=== PATIENT | female | born 2000 | race Caucasian/White ===

== ENCOUNTER 2020-03-05 18:17 | Inpatient (IN) | payer OTHER ==
[2020-03-05] MEDS ORDERED: DINOPROSTONE 10 MG VAGINAL INSERT.SR PV PRN (19:17)
[2020-03-05] MEDS ORDERED: OXYTOCIN/0.9 % SODIUM CHLORIDE 30 UNIT/500 ML RTUINJ IV PRN (19:17)
[2020-03-05] MEDS ORDERED: RINGERS SOLUTION,LACTATED 1,000 ML IV PRN (19:19)
[2020-03-05] MEDS ORDERED: RINGERS SOLUTION,LACTATED 300 ML IV ONE (19:19)
[2020-03-05] MEDS ORDERED: DINOPROSTONE 10 MG VAGINAL INSERT.SR ONE (19:33)
[2020-03-05 20:27] LABS: HEMATOCRIT 34.9 % (36.0-47.0); HEMOGLOBIN 11.8 g/dL (12.0-15.5); MEAN CORPUSCULAR HEMOGLOBIN 30.2 pg (27.0-33.4); MEAN CORPUSCULAR HGB CONC 33.9 g/dL (32.0-36.0); MEAN CORPUSCULAR VOLUME 89 fl (80-97); PLATELET COUNT 180 10^3/uL (150-450); RED BLOOD COUNT 3.91 10^6/uL (3.72-5.28); WHITE BLOOD COUNT 7.5 10^3/uL (4.0-10.5)
[2020-03-05 21:07] LABS: APPEARANCE,URINE TURBID; BILIRUBIN,URINE NEGATIVE (NEGATIVE); COLOR,URINE YELLOW; GLUCOSE, URINE NEGATIVE (NEGATIVE); KETONES,URINE NEGATIVE (NEGATIVE); LEUKOCYTE ESTERASE,URINE TRACE (NEGATIVE); NITRITE,URINE NEGATIVE (NEGATIVE); PROTEIN,URINE 30 mg/dL (NEGATIVE); URINE SPECIFIC GRAVITY 1.026
[2020-03-05 21:16] LABS: URINE AMPHETAMINES SCREEN NEGATIVE; URINE BARBITURATES SCREEN NEGATIVE; URINE BENZODIAZEPINES SCREEN NEGATIVE; URINE COCAINE SCREEN NEGATIVE; URINE MARIJUANA (THC) SCREEN NEGATIVE; URINE METHADONE SCREEN NEGATIVE; URINE PHENCYCLIDINE SCREEN NEGATIVE
[2020-03-06] MEDS ORDERED: LIDOCAINE 1% INJ-PF (10 MG/ML) 30 ML SDV ONE (08:45)
[2020-03-06] MEDS ORDERED: OXYTOCIN/0.9 % SODIUM CHLORIDE 30 UNIT/500 ML RTUINJ ONE (08:45)
[2020-03-06] MEDS ORDERED: OXYTOCIN 10 UNIT/ML VIAL ONE (08:45)
[2020-03-06] MEDS ORDERED: MISOPROSTOL 0.2 MG TABLET ONE (08:45)
[2020-03-06] MEDS ORDERED: NALBUPHINE HCL INJ 10 MG/1 ML AMPULE ONE (09:12)
[2020-03-06] MEDS ORDERED: NALBUPHINE HCL INJ 10 MG/1 ML AMPULE INJ ONE (09:20)
[2020-03-06] MEDS ORDERED: ONDANSETRON HCL INJ/PF 4 MG/2 ML SDV ONE (10:12)
[2020-03-06 10:26] LABS: ABSOLUTE LYMPHOCYTES (AUTO) 1.6 10^3/uL (0.5-4.7); ABSOLUTE MONOCYTES (AUTO) 1.1 10^3/uL (0.1-1.4); ABSOLUTE NEUT (AUTO) 8.6 10^3/uL (1.7-8.2); BASOPHILS % (AUTO) 0.2 % (0-2); EOSINOPHILS % (AUTO) 0.3 % (0-6); HEMATOCRIT 37.6 % (36.0-47.0); HEMOGLOBIN 12.7 g/dL (12.0-15.5); LYMPHOCYTES % (AUTO) 14.4 % (13-45); MEAN CORPUSCULAR HEMOGLOBIN 30.2 pg (27.0-33.4); MEAN CORPUSCULAR HGB CONC 33.6 g/dL (32.0-36.0); MEAN CORPUSCULAR VOLUME 90 fl (80-97); MONOCYTES % (AUTO) 9.4 % (3-13); PLATELET COUNT 193 10^3/uL (150-450); RED CELL DISTRIBUTION WIDTH 14.2 % (11.5-14.0); SEGMENTED NEUTROPHILS % (AUTO) 75.7 % (42-78); TOTAL CELLS COUNTED % (AUTO) 100 %; WHITE BLOOD COUNT 11.3 10^3/uL (4.0-10.5)
[2020-03-06 10:46] LABS: ALBUMIN 3.6 g/dL (3.5-5.0); ALKALINE PHOSPHATASE 145 U/L (38-126); ANION GAP 8 (5-19); ASPARTATE AMINO TRANSFERASE 26 U/L (14-36); BILIRUBIN,TOTAL 0.3 mg/dL (0.2-1.3); BLOOD UREA NITROGEN 9 mg/dL (7-20); CALCIUM 9.2 mg/dL (8.4-10.2); CARBON DIOXIDE 22 mmol/L (22-30); CHLORIDE 105 mmol/L (98-107); GLUCOSE 94 mg/dL (75-110); POTASSIUM 4.3 mmol/L (3.6-5.0); TOTAL PROTEIN 6.6 g/dL (6.3-8.2); URIC ACID 5.8 mg/dL (2.5-6.2)
--- NOTE | 2020-03-06 11:05 | Admission Physical ---
Datetime Report Generated by CPN: 03/06/2020 11:05 CURRENT ADMISSION Hx Assessment: The History has been Reviewed and is Current Chief Complaint: Scheduled Induction of Labor Indication for Induction: Post Dates; Gestational HTN Admit Impression : Term, Intrauterine Admit Plan: Admit to Unit; Initiate Labor Induction Protocol ALLERGIES Medication Allergies: No Medication Allergies: No Known Allergies (03/05/2020) Latex: No Latex Allergies Food Allergies: none Environmental Allergies: none OBSTETRICAL HISTORY EDC: 03/03/2020 00:00 : 1 Para: 0 Term: 0 : 0 SAB: 0 IAB: 0 Ectopic: 0 Livin Cesareans: 0 VBACs: 0 Multiple Births: 0 Gestational Diabetes: No Rh Sensitization: No Incompetent Cervix: No RICKEY: No Infertility: No ART Treatment: No Uterine Anomaly: No IUGR: No Hx Previous C/S: No Macrosomia: No Hx Loss/Stillborn: No PIH: Yes Hx : No Placenta Previa/Abruption: No Depression/PP Depression: No PTL/PROM: No Post Hemorrhage: No Current Procedures: Ultrasound; NST Obstetrical History Comments: G1- Current SEE RECORDS Alcohol: No Marijuana : No Cocaine: No Other Illicit Drugs: No Cigarettes: Never Smoker. [id number] MEDICAL HISTORY Diabetes: No Blood Transfusion: No Pulmonary Disease (Asthma, TB): No Breast Disease: No Hypertension: No [employer] Surgery: No Heart Disease: No Hosp/Surgery: Yes Autoimmune Disorder: No Anesthetic Complications: No Kidney Disease: No Abnormal Pap Smear: No Neuro/Epilepsy: No Psychiatric Disorders: No Other Medical Diseases: No Hepatitis/Liver Disease: No Significant Family History: No Varicosities/Phlebitis: No Trauma/Violence : No Thyroid Dysfunction: No Medical History Comments: wisdom teeth INFECTIOUS HISTORY Gonorrhea: No Genital Herpes: No Chlamydia: No Tuberculosis: No Syphilis: No Hepatitis: No HIV/AIDS Exposure: No Rash or Viral Illness: No HPV: Yes Infectious History Comments: 03/04/20- ASCUS pap + HR HPV PHYSICAL EXAM General: Normal HEENT: Normal Neurologic: Normal Thyroid: Normal Heart: Normal Lungs: Normal Breast: Deferred Back: Normal Abdomen: Normal Genitourinary Exam: Normal Extremities: Normal DTRs: Normal Pelvic Type: Adequate Physical Exam Comments: ASCUS pap + HR HPV GHTN GBS neg FETUS A EGA: 40.3 Monitoring: External US FHR Category: Category I Admit Comment: Admitted to LD by Dr. Smith for IOL for postdates and GHTN, cervidil, Pitocin Seen by Dr. Huitron this AM, VE /-1, ramos bulb placed by Dr. Huitron POC was discussed irreguc's, Pitocin infusing PLANS FOR LABOR AND DELIVERY Labor and Delivery: None Pain Management: Epidural Feeding Preference: Breast Benefit of Breast Feed Discussed: Yes Circumcision: N/A INFORMED CONSENT Assignment: Kenia Huitron MD Signature: with User ID: [email or web address] : with User ID: [email or web address]
[2020-03-06] MEDS ORDERED: EPHEDRINE SULFATE INJ 50 MG/1 ML AMPULE ONE (11:08)
[2020-03-06] MEDS ORDERED: BUPIVACAINE HCL 0.25 % INJ/PF (2.5 MG/1 ML) 30 ML VIAL ONE (11:09)
[2020-03-06] MEDS ORDERED: FENTANYL/BUPIVACAINE/NS/PF 300 MCG/150 ML RTUINJ EPI ONE (11:09)
--- NOTE | 2020-03-06 11:09 | L&D Progress Notes ---
PROGRESS NOTES Datetime Report Generated by CPN: 03/06/2020 11:09 PROGRESS NOTE Comment: requesting pain medication, does not want epidural now, too soon for more pain meds and baby with minimal variability IV fluid bolus, reposition pt has decided to go ahead and get epidural at this time LAST VAGINAL EXAM-NURSING Nursing Exam Dilitation: 2.0 Nursing Exam Effacement: 70 Nursing Exam Station: high Nursing Exam Contractions: Prolonged contraction noted. SIGNATURE SIGNATURE: [id number];[id number] Assignment: Kenia Huitron MD Signature: with User ID: Milli : with User ID: Milli
--- NOTE | 2020-03-06 12:59 | L&D Progress Notes ---
PROGRESS NOTES Datetime Report Generated by CPN: 03/06/2020 12:58 PROGRESS NOTE Comment: epidural in place, Cat 1 before epidural, moderate variability, irreg uc's, continue to monitor closely LAST VAGINAL EXAM-NURSING Nursing Exam Dilitation: 2.0 Nursing Exam Effacement: 70 Nursing Exam Station: high Nursing Exam Contractions: Prolonged contraction noted. SIGNATURE SIGNATURE: [id number] Assignment: Kenia Huitron MD Signature: with User ID: [email or web address] : with User ID: [email or web address]
--- NOTE | 2020-03-06 13:51 | L&D Progress Notes ---
PROGRESS NOTES Datetime Report Generated by CPN: 03/06/2020 13:51 PROGRESS NOTE Comment: Cat 1 strip.irreg uc's, comfortable with epidural LAST VAGINAL EXAM-NURSING Nursing Exam Dilitation: 2.0 Nursing Exam Effacement: 70 Nursing Exam Station: high Nursing Exam Contractions: Prolonged contraction noted. SIGNATURE SIGNATURE: [id number];[id number] Assignment: Kenia Huitron MD Signature: with User ID: Milli : with User ID: Milli
--- NOTE | 2020-03-06 15:36 | L&D Progress Notes ---
PROGRESS NOTES Datetime Report Generated by CPN: 03/06/2020 15:35 PROGRESS NOTE Comment: uc's q 2-3 min, Cat 1 strip, Dr. Huitron awre of status LAST VAGINAL EXAM-NURSING Nursing Exam Dilitation: 2.0 Nursing Exam Effacement: 70 Nursing Exam Station: high Nursing Exam Contractions: Prolonged contraction noted. SIGNATURE SIGNATURE: [id number];[id number] Assignment: Kenia Huitron MD Signature: with User ID: [email or web address] : with User ID: [email or web address]
[2020-03-06] MEDS ORDERED: LIDOCAINE 2% INJ-PF (20 MG/ML) 10 ML AMPUL ONE (19:37)
[2020-03-07] MEDS ORDERED: FENTANYL/BUPIVACAINE/NS/PF 300 MCG/150 ML RTUINJ EPI ONE (01:16)
[2020-03-07] MEDS ORDERED: DIPHENHYDRAMINE HCL 50 MG/ML VIAL IV ONE (05:07)
[2020-03-07] MEDS ORDERED: DIPHENHYDRAMINE HCL 50 MG/ML VIAL ONE (05:21)
--- NOTE | 2020-03-07 05:24 | L&D Progress Notes ---
PROGRESS NOTES Datetime Report Generated by CPN: 03/07/2020 05:24 PROGRESS NOTE Comment: per previous checks by her RN she was 8cm and 0 station. However, now new RN ck patient and she is 6cm. Possible cervical swelling. WIll stop pitocin and give D5W 250ml and also benadryl. However, concerned that CPD due to patient size and posibel baby 8+ pounds. Will re-eval after restart pitocin. WIll likely need section. LAST VAGINAL EXAM-NURSING Nursing Exam Dilitation: 6.0 Nursing Exam Effacement: 50 Nursing Exam Station: 0 Nursing Exam Contractions: Prolonged contraction noted. SIGNATURE SIGNATURE: [id number];[id number] Assignment: Kenia Huitron MD Signature: with User ID: [email or web address] : with User ID: [email or web address]
[2020-03-07] MEDS ORDERED: CALCIUM CARBONATE 500 MG TAB.CHEW PO ONE (05:35)
[2020-03-07] MEDS ORDERED: ROPIVACAINE HCL 0.2% INJ/PF (2 MG/ML) 20 ML SDV ONE (09:21)
[2020-03-07] MEDS ORDERED: DIBUCAINE 1% OINTMENT 28 GM TP PRN (11:32)
[2020-03-07] MEDS ORDERED: DIPH/PERTUSS(ACELL)/TETANUS VAC/PF 0.5 ML SYR (>=10YO) IM PRN (11:32)
[2020-03-07] MEDS ORDERED: ZOLPIDEM TARTRATE 5 MG TABLET PO PRN (11:32)
[2020-03-07] MEDS ORDERED: OXYTOCIN/0.9 % SODIUM CHLORIDE 30 UNIT/500 ML RTUINJ IV PRN (11:32)
[2020-03-07] MEDS ORDERED: PROMETHAZINE HCL 25 MG SUPP.RECT PR PRN (11:32)
[2020-03-07] MEDS ORDERED: MEASLES,MUMPS&RUBELLA VACC/PF 0.5 ML VIAL SUBCUT PRN (11:32)
[2020-03-07] MEDS ORDERED: ACETAMINOPHEN 650 MG SUPP.RECT PR PRN (11:32)
[2020-03-07] MEDS ORDERED: DIPHENHYDRAMINE HCL 25 MG CAPSULE PO PRN (11:32)
[2020-03-07] MEDS ORDERED: BENZOCAINE/MENTHOL AEROSOL SPRAY 56 ML TOP PRN (11:32)
[2020-03-07] MEDS ORDERED: PROMETHAZINE HCL 25 MG TABLET PO PRN (11:32)
[2020-03-07] MEDS ORDERED: MAGNESIUM HYDROXIDE SUSP 30 ML UDCUP PO PRN (11:32)
[2020-03-07] MEDS ORDERED: ACETAMINOPHEN WITH CODEINE #3 TABLET PO PRN ×2 (11:32)
[2020-03-07] MEDS ORDERED: GLYCERIN/WITCH HAZEL LEAF 1 EACH MED..WIPE TP PRN (11:32)
[2020-03-07] MEDS ORDERED: PSEUDOEPHEDRINE HCL 30 MG TABLET PO PRN (11:32)
[2020-03-07] MEDS ORDERED: PROMETHAZINE HCL INJ 25 MG/1 ML VIAL IV PRN (11:32)
[2020-03-07] MEDS ORDERED: NA PHOS,M-B/NA PHOS,DI-BA (ADULT) 133 ML ENEMA PR PRN (11:32)
[2020-03-07] MEDS ORDERED: IBUPROFEN 800 MG TABLET ONE (11:36)
--- NOTE | 2020-03-07 13:28 | Delivery Summary ---
Del Sum A-C Datetime Report Generated by CPN: 03/07/2020 13:28 DELIVERY PERSONNEL DELIVERY PERSONNEL: [id number] Delivery Doctor:: Hilda Chandra MD Labor and Delivery Nurse:: Karen Garcia RN Nursery Nurse:: Zachary Alegria RN Top Dyeing Machine Tender/INSTALLMENT LOAN COLLECTOR: Samantha Bush, ST MATERNAL INFORMATION Delivery Anesthesia: Epidural Medications After Delivery: Pitocin 30 Units in 500ml NS/D5W Estimated Blood Loss (ml): 150 Delivery QBL: 150 Maternal Complications: None LABOR SUMMARY EDC: 03/03/2020 00:00 No. Babies in Womb: 1 Attempted: No Labor Anesthesia: Epidural LABOR INFORMATION Reason for Induction: Post Dates; Gestational Hypertension Onset of Labor: 03/07/2020 05:02 Complete Dilatation: 03/07/2020 09:33 Cervical Ripening Agents: Cervidil Oxytocin: Induction Group B Beta Strep: negative Antibiotics # of Doses: 0 Antibiotics Time of Last Dose: n/a Name of Antibiotic Given: n/a Steroids Given: None Reason Steroids Not Administered: Not Applicable MEMBRANES Membranes Rupture Method: Spontaneous Rupture of Membranes: 03/06/2020 17:27 Length of Rupture (hr): 17.78 Amniotic Fluid Color: Clear Amniotic Fluid Amount: Moderate Amniotic Fluid Odor: None STAGES OF LABOR Stage 1 hr: 4 Stage 1 min: 31 Stage 2 hr: 1 Stage 2 min: 41 Stage 3 hr: 0 Stage 3 min: 3 Total Time in Labor hr: 6 Total Time in Labor min: 15 VAGINAL DELIVERY Episiotomy: None Laceration #1: Perineal; Vaginal Laceration Extension #1: Third Degree, IIIa (Less than 50 percent ext anal sphincter thickness torn) Laceration Repair: Yes Laceration Repair Note: external spincter muscles reapproximated using a box stich. Rest of tear repaired in normal running locked fashion with subcutaneous stitch for skin repair. Sponge Count Correct: Yes Sharps Count Correct: Yes CSECTION DELIVERY Primary Indication: N/A Secondary Indication: N/A CSection Incidence: N/A Labor: N/A Elective: N/A CSection Incision: N/A BABY A INFORMATION Delivery Date/Time: 03/07/2020 11:14 Method of Delivery: Vaginal Nurse Controlled Delivery: No Born in Route : No : N/A Forceps: N/A Vacuum Extraction: N/A Shoulder Dystocia : No PRESENTATION/POSITION BABY A Presentation: Cephalic Cephalic Presentation: Vertex Vertex Position: Left Occipital Anterior Breech Presentation: N/A PLACENTA INFORMATION BABY A Placenta Delivery Time : 03/07/2020 11:17 Placenta Method of Delivery: Spontaneous Placenta Status: Delivered SCORES BABY A Heart Rate 1 min: >100 bpm Resp Effort 1 min: Good Cry Reflex Irritability 1 min: Cough or Sneeze or Pulls Away Muscle Tone 1 min: Active Motion Color 1 min: Body Carnot-Moon, Extremities Blue Resuscitation Effort 1 min: Tactile Stimulation SCORE 1 MIN: 9 Heart Rate 5 min: >100 bpm Resp Effort 5 min: Good Cry Reflex Irritability 5 min: Cough or Sneeze or Pulls Away Muscle Tone 5 min: Active Motion Color 5 min: Body Car[place]Moon, Extremities Blue Resuscitation Effort 5 min: Tactile Stimulation SCORE 5 MIN: 9 INFORMATION BABY A Gestational Age at Delivery: 40.3 Gestational Status: Full Term- 39- 40.6 Weeks Infant Outcome : Liveborn Infant Condition : Stable Infant Sex: Female IDENTIFICATION BABY A Infant Verification Date/Time: 03/07/2020 12:26 ID Band Number: [id number] Mother's Name Verified: Yes Infant RN Verifying Infant: Toney White RN, B. Ibethdy RN WEIGHT/LENGTH BABY A Birthweight (gm): 3364 Infant Weight (lb): 7 Weight (oz): 7 Infant Length (in): 20.00 Length (cm): 50.80 CORD INFORMATION BABY A No. Cord Vessels: 3 Nuchal Cord : Around Neck x1, Loose Cord Blood Taken: Yes-For Storage (Mom's Blood type +) Suction: Mouth; Nose ASSESSMENT BABY A Complications: None Physical Findings at Delivery: Bruising Physical Findings- Other: facial bruising Infant Respirations: Appears Normal Skin to Skin: Yes Sight Mounter/ALS Called : No Infant Care By: Yuriyrtin,RN/J Navarro, RN Transferred To: Remains with Mother BABY B INFORMATION : N/A SIGNATURES Signature: with User ID: [email or web address]
[2020-03-07] MEDS ORDERED: BENZOCAINE/MENTHOL AEROSOL SPRAY 56 ML ONE (13:46)
[2020-03-07] MEDS: DOCUSATE SODIUM 100 MG CAPSULE PO SCH (17:10)
[2020-03-07] MEDS: FERROUS SULFATE 325 MG TABLET PO SCH (17:10)
[2020-03-07] MEDS: FAMOTIDINE 20 MG TABLET PO SCH (22:16)
[2020-03-07] MEDS: IBUPROFEN 800 MG TABLET PO SCH (22:16)
[2020-03-08] MEDS: IBUPROFEN 800 MG TABLET PO SCH ×3 (05:25→21:08)
[2020-03-08 07:04] LABS: MEAN CORPUSCULAR HEMOGLOBIN 30.9 pg (27.0-33.4); MEAN CORPUSCULAR HGB CONC 34.4 g/dL (32.0-36.0); MEAN CORPUSCULAR VOLUME 90 fl (80-97); PLATELET COUNT 149 10^3/uL (150-450); RED BLOOD COUNT 3.34 10^6/uL (3.72-5.28); RED CELL DISTRIBUTION WIDTH 14.5 % (11.5-14.0)
[2020-03-08 07:06] LABS: HEMOGLOBIN 10.3 g/dL (12.0-15.5)
--- NOTE | 2020-03-08 09:33 | PDOC PROGRESS REPORT ---
Subjective-OB Progress Note for:: 03/08/20 Subjective: Doing well, asleep when I entered room, hsb at BS, no c/o Physical Exam (OB) Vital Signs: Temp Pulse Resp BP Pulse Ox 97.5 F 76 16 140/84 H 99 03/08/20 08:00 03/08/20 08:00 03/08/20 08:00 03/08/20 08:00 03/08/20 08:00 Intake & Output 03/07/20 03/08/20 03/09/20 06:59 06:59 06:59 Intake Total 240 Balance 240 - PIH/Pre-Eclampsia Clonus: Negative Headache: Absent Epigastric Pain: No Visual Changes: No - Lochia Lochia Amount: Scant < 10 ml Lochia Color: Rubra/Red - Abdomen Description: Tender, Soft Hernia Present: No Fundal Description: Firm, Midline Fundal Height: u/u - u/2 Objective-Diagnostic Laboratory: 03/08/20 06:12 03/06/20 10:14 03/08/20 06:12 WBC 11.0 H RBC 3.34 L Hgb 10.3 L D Hct 30.0 L MCV 90 MCH 30.9 MCHC 34.4 RDW 14.5 H Plt Count 149 L Assessment and Plan(PN) - Assessment and Plan (1) Vaginal delivery Is this a current diagnosis for this admission?: Yes (2) Gestational hypertension Qualifiers: Trimester: second trimester Qualified Code(s): O13.2 - Gestational [-induced] hypertension without significant proteinuria, second trimester Is this a current diagnosis for this admission?: Yes - Time Spent with Patient Time with patient: Less than 15 minutes Medications reviewed and adjusted accordingly: Yes
[2020-03-08] MEDS: DOCUSATE SODIUM 100 MG CAPSULE PO SCH ×2 (10:36→17:50)
[2020-03-08] MEDS: SENNOSIDES/DOCUSATE 8.6-50 MG 1 EACH TABLET PO SCH (10:36)
[2020-03-08] MEDS: FAMOTIDINE 20 MG TABLET PO SCH ×2 (10:36→21:07)
[2020-03-08] MEDS: PRENATAL VITAMIN W DHA CAPSULE PO SCH (10:36)
[2020-03-08] MEDS: FERROUS SULFATE 325 MG TABLET PO SCH ×2 (10:36→17:51)
[2020-03-08] MEDS ORDERED: FUROSEMIDE 20 MG TABLET PO ONE (21:00)
[2020-03-09] MEDS: IBUPROFEN 800 MG TABLET PO SCH ×3 (05:32→21:34)
--- NOTE | 2020-03-09 07:12 | RADIOLOGY REPORT (SQ) ---
CHEST 1 VIEW on 03/09/2020 at 6:40 AM CLINICAL INDICATION: Tachycardia COMPARISON: None FINDINGS: The lungs are clear. Cardiac, hilar and mediastinal contours are within normal limits. Pulmonary vascularity is within normal limits. No bony abnormality is noted. IMPRESSION: No active disease.
--- NOTE | 2020-03-09 08:00 | EKG REPORT ---
SEVERITY:- NORMAL ECG - SINUS RHYTHM : Confirmed by: Joyce Kent 09-Mar-2020 07:59:43
--- NOTE | 2020-03-09 10:30 | PDOC PROGRESS REPORT ---
Subjective-OB Progress Note for:: 03/09/20 Physical Exam (OB) Vital Signs: Temp Pulse Resp BP Pulse Ox 98.0 F 92 17 113/68 99 03/09/20 07:25 03/09/20 07:25 03/09/20 07:25 03/09/20 07:25 03/09/20 07:25 Intake & Output 03/08/20 03/09/20 03/10/20 06:59 06:59 06:59 Intake Total 240 700 240 Balance 240 700 240 - PIH/Pre-Eclampsia DTR's: 2 + Clonus: Negative Headache: Absent Epigastric Pain: No Visual Changes: No - Lochia Lochia Amount: Scant < 10 ml Lochia Color: Rubra/Red - Abdomen Description: Soft Hernia Present: No Bowel Sounds: Normoactive Flatus Presence: Present Stool: Yes Fundal Description: Firm, Midline Fundal Height: u/u - u/2 Objective-Diagnostic Laboratory: 03/08/20 06:12 03/06/20 10:14 Assessment and Plan(PN) - Time Spent with Patient Medications reviewed and adjusted accordingly: Yes
[2020-03-09] MEDS: SENNOSIDES/DOCUSATE 8.6-50 MG 1 EACH TABLET PO SCH (11:16)
[2020-03-09] MEDS: FERROUS SULFATE 325 MG TABLET PO SCH ×2 (11:16→18:25)
[2020-03-09] MEDS: DOCUSATE SODIUM 100 MG CAPSULE PO SCH ×2 (11:16→18:25)
[2020-03-09] MEDS: FAMOTIDINE 20 MG TABLET PO SCH ×2 (11:16→21:33)
[2020-03-09] MEDS: PRENATAL VITAMIN W DHA CAPSULE PO SCH (11:16)
--- NOTE | 2020-03-09 12:44 | PDOC CONSULTATION ---
Consultation Consult Date: 03/09/20 Attending physician:: KARLO BELLO Provider Consulted: SAMAN JARA Consult reason:: Tachycardia History of Present Illness Admission Date/PCP: 03/05/20 18:17 History of Present Illness: QUINN WEEKS is a 19 year old female without known medical problems and no family history of premature coronary artery disease who is consulted to our service for evaluation of tachycardia. The patient had a prolonged but uneventf ul vaginal delivery and had been noted to have some episodes of tachycardia as well as lower extremity edema. The patient feels well today and specifically denies chest pain, shortness of breath, HERNANDEZ, PND, palpitations, syncope and presyncope. She denies prior episodes of palpitations/tachycardia however did admit to some episodes of dizziness and lightheadedness with standing up quickly when she was younger. By her report, back in 2018 she was evaluated by a provider for what sounds like atypical chest pain but no diagnosis was given. She is currently resting comfortably in bed. GENERAL: Pleasant and conversational. Oriented x3 with normal mood. Not in acute distress. Well groomed and well developed. HEENT: Normocephalic, atraumatic. Pupils equal. Sclerae anicteric. Orophary nx moist. NECK: No JVD. No carotid bruits. LUNGS: Clear to auscultation bilaterally. Normal respiratory effort without the use of accessory muscles or intercostal retractions. CARDIOVASCULAR: Regular rate and rhythm, normal S1 and S2 without murmurs, rubs, or gallops. PMI not displaced. EXTREMITIES: 2+ pitting edema bilaterally, no cyanosis, no clubbing. +2 pulses femoral and pedal pulses bilaterally. SKIN: No lesions or rashes. MUSCULOSKELETAL: No chest tenderness to palpation. NEUROLOGIC: Nonfocal. No gross sensory or motor deficits bilateral upper or lower extremities. Cardiac studies: Echocardiogram on 03/09/2020: -LV is normal in size. -LV systolic function is normal. -EF 60 to 65%. -Trace MR, trace TR. -No prior studies for comparison. Social History Smoking Status: Unknown if Ever Smoked Family History Parental Family History Reviewed: Yes Children Family History Reviewed: Yes Sibling(s) Family History Reviewed.: Yes Medication/Allergy Home Medications: Pnv No.95/Ferrous Fum/Folic AC [ Vitamins Tablet] 1 each PO DAILY 03/05/20 Allergies/Adverse Reactions: No Known Allergies Allergy (Unverified 03/05/20 18:27) Physical Exam Vital Signs: Temp Pulse Resp BP Pulse Ox 98.2 F 99 16 113/76 100 03/09/20 11:25 03/09/20 11:25 03/09/20 11:25 03/09/20 11:25 03/09/20 11:25 Intake & Output 03/08/20 03/09/20 03/10/20 06:59 06:59 06:59 Intake Total 240 700 240 Balance 240 700 240 Results Laboratory Results: 03/08/20 06:12 03/06/20 10:14 Impressions: Chest X-Ray 03/09/20 00:00 IMPRESSION: No active disease. 03/08/20 06:12 03/06/20 10:14 MCV 90 fl (80-97) 03/08/20 06:12 MCH 30.9 pg (27.0-33.4) 03/08/20 06:12 MCHC 34.4 g/dL (32.0-36.0) 03/08/20 06:12 RDW 14.5 % (11.5-14.0) H 03/08/20 06:12 Seg Neutrophils % 75.7 % (42-78) 03/06/20 10:14 Chloride 105 mmol/L (98-107) 03/06/20 10:14 Carbon Dioxide 22 mmol/L (22-30) 03/06/20 10:14 Anion Gap 8 (5-19) 03/06/20 10:14 Est GFR ( Amer) > 60 (>60) 03/06/20 10:14 Glucose 94 mg/dL (75-110) 03/06/20 10:14 Uric Acid 5.8 mg/dL (2.5-6.2) 03/06/20 10:14 Calcium 9.2 mg/dL (8.4-10.2) 03/06/20 10:14 Total Bilirubin 0.3 mg/dL (0.2-1.3) 03/06/20 10:14 AST 26 U/L (14-36) 03/06/20 10:14 Alkaline Phosphatase 145 U/L (38-126) H 03/06/20 10:14 Total Protein 6.6 g/dL (6.3-8.2) 03/06/20 10:14 Albumin 3.6 g/dL (3.5-5.0) 03/06/20 10:14 Urine Color YELLOW 03/05/20 18:29 Urine Appearance TURBID 03/05/20 18:29 Urine pH 6.0 (5.0-9.0) 03/05/20 18:29 Ur Specific [place] 1.026 03/05/20 18:29 Urine Protein 30 mg/dL (NEGATIVE) H 03/05/20 18:29 Urine Glucose (UA) NEGATIVE mg/dL (NEGATIVE) 03/05/20 18:29 Urine Ketones NEGATIVE mg/dL (NEGATIVE) 03/05/20 18:29 Urine Blood SMALL (NEGATIVE) H 03/05/20 18:29 Urine Nitrite NEGATIVE (NEGATIVE) 03/05/20 18:29 Ur Leukocyte Esterase TRACE (NEGATIVE) H 03/05/20 18:29 Urine WBC (Auto) 1 /HPF 03/05/20 18:29 Urine RBC (Auto) 1 /HPF 03/05/20 18:29 Blood Type A POSITIVE 03/05/20 19:57 Antibody Screen NEGATIVE 03/05/20 19:57 Current Medication List Generic Name Dose Route Start Last Admin Trade Name Freq PRN Reason Stop Dose Admin Acetaminophen 650 mg 03/07/20 11:32 Tylenol 650 Mg Supp RI 04/06/20 11:31 Q4HP PRN Fever greater than 101 Acetaminophen/Codeine Phosphate 1 each 03/07/20 11:32 Tylenol #3 Tablet PO 03/14/20 11:31 Q4HP PRN FOR PAIN SCALE 1-3 Acetaminophen/Codeine Phosphate 2 each 03/07/20 11:32 Tylenol #3 Tablet PO 03/14/20 11:31 Q4HP PRN FOR PAIN SCALE 4-5 Benzocaine 1 applic 03/07/20 11:32 Dermoplast Aerosol [place] 56 Ml TOP 04/06/20 11:31 PRN PRN FOR EPISIOTOMY PAIN Dibucaine 1 applic 03/07/20 11:32 Nupercainal 1% Oint 28 Gm TP 04/06/20 11:31 PRN PRN FOR HEMORRHOIDS Diphenhydramine HCl 25 mg 03/07/20 11:32 Benadryl 25 Mg Capsule PO 04/06/20 11:31 Q6HP PRN Rash/Itching Diphtheria/Tetanus/Acell Pertussis 0.5 ml 03/07/20 11:32 Boostrix Vaccine 0.5 Ml Syringe IM 04/06/20 11:31 .DISCHARGE PRN IF NOT PREVIOUSLY VACCINATED Docusate Sodium 100 mg 03/07/20 18:00 03/09/20 11:16 Colace 100 Mg Capsule PO 04/06/20 17:59 100 mg BID DON Administration Famotidine 20 mg 03/07/20 22:00 03/09/20 11:16 Pepcid 20 Mg Tablet PO 04/06/20 21:59 20 mg Q12 DON Administration Ferrous Sulfate 325 mg 03/07/20 18:00 03/09/20 11:16 Feosol 325 Mg Tablet PO 04/06/20 17:59 325 mg BID DON Administration Ibuprofen 800 mg 03/07/20 22:00 03/09/20 05:32 Motrin 800 Mg Tablet PO 04/06/20 21:59 800 mg Q8 DON Administration Magnesium Hydroxide 30 ml 03/07/20 11:32 Milk Of Magnesia 30 Ml Udcup PO 04/06/20 11:31 BIDP PRN Constipation Measles/Mumps/Rubella Vaccine Live 0.5 ml 03/07/20 11:32 M-M-R Ii Vaccine Kit 0.5 Ml SUBCUT 04/06/20 11:31 .DISCHARGE PRN IF PATIENT IS NON-IMMUNE Vit/Iron/Folic Acid/DHA 1 cap 03/08/20 10:00 03/09/20 11:16 Multi + Dha Capsule PO 04/07/20 09:59 1 cap DAILY DON Administration Promethazine HCl 25 mg 03/07/20 11:32 Phenergan 25 Mg Tablet PO 04/06/20 11:31 Q4HP PRN Nausea Promethazine HCl 25 mg 03/07/20 11:32 Phenergan 25 Mg Supp.Rect RI 04/06/20 11:31 Q4HP PRN Nausea Promethazine HCl 25 mg 03/07/20 11:32 Phenergan Inj 25 Mg/1 Ml Vial IV 04/06/20 11:31 Q4HP PRN Nausea Pseudoephedrine HCl 60 mg 03/07/20 11:32 Sudafed 30 Mg Tablet PO 04/06/20 11:31 Q6HP PRN Congestion (nasal or Head) Senna/Docusate Sodium 1 each 03/08/20 10:00 03/09/20 11:16 Senna Plus Tablet PO 04/07/20 09:59 1 each DAILY DON Administration Sodium Biphosphate/Sodium Phosphate 133 ml 03/07/20 11:32 Fleet Enema (Adult) 133 Ml RI 04/06/20 11:31 PRN PRN gas [place]/Glycerin 1 each 03/07/20 11:32 Tucks Take-Alongs Wipe TP 04/06/20 11:31 DAILYP PRN ITCHING Zolpidem Tartrate 5 mg 03/07/20 11:32 Ambien 5 Mg Tablet PO 03/14/20 11:31 HSP PRN FOR SLEEP Discontinued Medications Generic Name Dose Route Start Last Admin Trade Name Brent PRN Reason Stop Dose Admin Benzocaine Confirm 03/07/20 13:46 03/07/20 14:41 Dermoplast Aerosol [place] 56 Ml Administered 03/07/20 13:47 Not Given Dose 56 applic .ROUTE .STK-MED ONE Bupivacaine HCl Confirm 03/06/20 11:09 03/07/20 14:27 Sensorcaine-Mpf 0.25% Inj 30 Ml Sdv Administered 03/06/20 11:10 Not Given Dose 30 ml .ROUTE .STK-MED ONE Calcium Carbonate 1,000 mg 03/07/20 05:35 03/07/20 06:09 Tums Chewable 500 Mg Tab.Chew PO 03/07/20 05:36 1,000 mg NOW ONE Administration Dinoprostone 10 mg 03/05/20 19:17 03/05/20 19:47 Cervidil 10 Mg Vaginal Insert PV 03/06/20 19:16 10 mg .AFTER IV STARTED PRN Administration THIS IS NOT A PRN MED Dinoprostone Confirm 03/05/20 19:33 03/07/20 15:50 Cervidil 10 Mg Vaginal Insert Administered 03/05/20 19:34 Not Given Dose 10 mg .ROUTE .STK-MED ONE Diphenhydramine HCl 25 mg 03/07/20 05:07 03/07/20 14:28 Benadryl Inj 50 Mg/1 Ml Vial IV 03/07/20 05:08 Not Given NOW ONE Diphenhydramine HCl Confirm 03/07/20 05:21 03/07/20 05:43 Benadryl Inj 50 Mg/1 Ml Vial Administered 03/07/20 05:22 25 mg Dose Administration 50 mg .ROUTE .STK-MED ONE Ephedrine Sulfate Confirm 03/06/20 11:08 03/07/20 14:40 Ephedrine Sulfate Inj 50 Mg/Ml Ampule Administered 03/06/20 11:09 Not Given Dose 50 mg .ROUTE .STK-MED ONE Furosemide 20 mg 03/08/20 21:00 03/08/20 21:07 Lasix 20 Mg Tablet PO 03/08/20 21:01 20 mg NOW ONE Administration Oxytocin/Sodium Chloride 30 unit in 500 mls @ 0 mls/hr 03/05/20 19:17 03/06/20 13:22 Pitocin Rtu 30 Units-Ns 500 Ml Premix Bag IV 04/04/20 19:16 2 mls/hr CONTINUOUS PRN Administration THIS MED IS NOT "PRN" Protocol As Directed Lactated Ringer's 300 mls @ 0 mls/hr 03/05/20 19:19 03/07/20 15:50 Lactated Ringers 1000 Ml Iv Soln IV 03/05/20 19:20 Not Given BOLUS ONE Wide Open Lactated Ringer's 1,000 mls @ 125 mls/hr 03/05/20 19:19 03/05/20 19:47 Lactated Ringers 1000 Ml Iv Soln IV 04/04/20 19:18 125 mls/hr CONTINUOUS PRN Administration THIS MED IS NOT "PRN" Oxytocin/Sodium Chloride Confirm 03/06/20 08:45 03/07/20 14:40 Pitocin Rtu 30 Units-Ns 500 Ml Premix Bag Administered 03/06/20 08:46 Not Given Dose 30 unit in 500 mls @ ud .ROUTE .STK-MED ONE Fentanyl/Bupivacaine/Sodium Chlor Confirm 03/06/20 11:09 03/07/20 14:40 Fentanyl 300mcg/150 Ml Bupiv 0.125% Epidural Administered 03/06/20 11:10 Not Given Dose 300 mcg in 150 mls @ ud EPI .STK-MED ONE Fentanyl/Bupivacaine/Sodium Chlor Confirm 03/07/20 01:16 03/07/20 14:40 Fentanyl 300mcg/150 Ml Bupiv 0.125% Epidural Administered 03/07/20 01:17 Not Given Dose 300 mcg in 150 mls @ ud EPI .STK-MED ONE Oxytocin/Sodium Chloride 30 unit in 500 mls @ 0 mls/hr 03/07/20 11:32 Pitocin Rtu 30 Units-Ns 500 Ml Premix Bag IV 03/07/20 11:32 .POSTPARTUMRECOVERY PRN THIS MED IS NOT "PRN" Wide Open Ibuprofen Confirm 03/07/20 11:36 03/07/20 11:39 Motrin 800 Mg Tablet Administered 03/07/20 11:37 800 mg Dose Administration 800 mg .ROUTE .STK-MED ONE Lidocaine HCl Confirm 03/06/20 08:45 03/07/20 14:40 Xylocaine 1% Inj-Pf (10 Mg/Ml) 30 Ml Sdv Administered 03/06/20 08:46 Not Given Dose 30 ml .ROUTE .STK-MED ONE Lidocaine HCl Confirm 03/06/20 19:37 03/07/20 14:28 Xylocaine 2% Inj-Pf (20 Mg/Ml) 10 Ml Ampul Administered 03/06/20 19:38 Not Given Dose 10 ml .ROUTE .STK-MED ONE Misoprostol Confirm 03/06/20 08:45 03/07/20 14:40 Cytotec 0.2 Mg Tablet Administered 03/06/20 08:46 Not Given Dose 0.2 mg .ROUTE .STK-MED ONE Nalbuphine HCl Confirm 03/06/20 09:12 03/06/20 09:15 Nubain Inj 10 Mg/1 Ml Ampule Administered 03/06/20 09:13 10 mg Dose Administration 10 mg .ROUTE .STK-MED ONE Nalbuphine HCl 10 mg 03/06/20 09:20 03/07/20 14:27 Nubain Inj 10 Mg/1 Ml Ampule INJ 03/06/20 09:21 Not Given NOW ONE Ondansetron HCl Confirm 03/06/20 10:12 03/06/20 10:16 Zofran Inj/Pf 4 Mg/2 Ml Sdv Administered 03/06/20 10:13 4 mg Dose Administration 4 mg .ROUTE .STK-MED ONE Oxytocin Confirm 03/06/20 08:45 03/07/20 14:40 Pitocin Inj 10 Units/1 Ml Vial Administered 03/06/20 08:46 Not Given Dose 10 unit .ROUTE .STK-MED ONE Ropivacaine Confirm 03/07/20 09:21 03/07/20 14:40 Naropin Inj/Pf 0.2% (2 Mg/Ml) 20 Ml Sdv Administered 03/07/20 09:22 Not Given Dose 20 ml .ROUTE .[facility] ONE Assessment & Plan - Diagnosis (1) Edema Plan: The patient does have 2+ pitting edema in the lower extremities bilaterally which is likely secondary to her recent . She has no evidence of heart failure on exam, remains asymptomatic from the cardiovascular standpoint with a normal echocardiogram for her age. It is not apparent how much fluid she was given during her labor but, given that she is asymptomatic with a normal systolic function and no evidence of any significant medical disease, she should be able to start diuresing spontaneously. Recommendations: -Continue with clinical observation. -Avoid unnecessary fluids. -No further cardiac work-up indicated at this point. (2) Tachycardia Plan: The patient was not tachycardic during my evaluation and she remained asymptomatic. The differential diagnosis for tachycardia is wide open at this point however the patient does not appear to have peripartum cardiomyopathy and her EKG i only demonstrated sinus rhythm a with no evidence of SVT. There is no obvious evidence of overt blood loss even though occult blood loss still remains in the differential as well as pulmonary embolism. She did lose approximately 2 g of hemoglobin which could also provoke her sinus tachycardia. Recommendations: -No further cardiac work-up indicated at this point. -Assess for pulmonary embolism at your discretion. -Obtain EKG if patient becomes tachycardic again. -We will continue to follow-up with you.
[2020-03-10] MEDS: IBUPROFEN 800 MG TABLET PO SCH (05:27)
[2020-03-10] MEDS: FAMOTIDINE 20 MG TABLET PO SCH (09:14)
[2020-03-10] MEDS: DOCUSATE SODIUM 100 MG CAPSULE PO SCH (09:14)
[2020-03-10] MEDS: FERROUS SULFATE 325 MG TABLET PO SCH (09:14)
[2020-03-10] MEDS: SENNOSIDES/DOCUSATE 8.6-50 MG 1 EACH TABLET PO SCH (09:14)
[2020-03-10] MEDS: PRENATAL VITAMIN W DHA CAPSULE PO SCH (09:14)
--- NOTE | 2020-03-10 11:38 | PDOC DISCHARGE SUMMARY ---
Impression - Admit/DC Date/PCP Admission Date/Primary Care Provider: 03/05/20 18:17 Discharge Date: 03/10/20 - Discharge Diagnosis (1) Edema Is this a current diagnosis for this admission?: Yes (2) Gestational hypertension Is this a current diagnosis for this admission?: Yes (3) Insufficient antepartum care Is this a current diagnosis for this admission?: Yes (4) Tachycardia Is this a current diagnosis for this admission?: Yes (5) Vaginal delivery Is this a current diagnosis for this admission?: Yes - Additional Information Resuscitation Status: Full Code Discharge Diet: Regular Discharge Activity: Balance Activity w/Rest, Pelvic Rest Prescriptions: Ibuprofen [Motrin 800 mg Tablet] 800 mg PO Q8HP PRN #60 tablet PRN Reason: Home Medications: Pnv No.95/Ferrous Fum/Folic AC [ Vitamins Tablet] 1 each PO DAILY 03/05/20 Ibuprofen [Motrin 800 mg Tablet] 800 mg PO Q8HP PRN #60 tablet 03/10/20 HPI Gestational Age: 40.3 Reason(s) for Admission: Induction of Labor Procedures: NST Intrapartum Procedure(s): Spontaneous Vaginal Delivery Complication(s): Laceration-Perineal Laceration-Degree: 3rd Complication(s) Note: Pt was tachycardic HR 120s, with pitting edema Hospital Course Hospital Course: Had negative cardiac workup with no further recommendations by consulting physician. Results Laboratory Results: WBC 11.0 10^3/uL (4.0-10.5) H 03/08/20 06:12 RBC 3.34 10^6/uL (3.72-5.28) L 03/08/20 06:12 Hgb 10.3 g/dL (12.0-15.5) L D 03/08/20 06:12 Hct 30.0 % (36.0-47.0) L 03/08/20 06:12 MCV 90 fl (80-97) 03/08/20 06:12 MCH 30.9 pg (27.0-33.4) 03/08/20 06:12 MCHC 34.4 g/dL (32.0-36.0) 03/08/20 06:12 RDW 14.5 % (11.5-14.0) H 03/08/20 06:12 Plt Count 149 10^3/uL (150-450) L 03/08/20 06:12 Lymph % (Auto) 14.4 % (13-45) 03/06/20 10:14 [place] % (Auto) 9.4 % (3-13) 03/06/20 10:14 Eos % (Auto) 0.3 % (0-6) 03/06/20 10:14 Baso % (Auto) 0.2 % (0-2) 03/06/20 10:14 Absolute Neuts (auto) 8.6 10^3/uL (1.7-8.2) H 03/06/20 10:14 Absolute Lymphs (auto) 1.6 10^3/uL (0.5-4.7) 03/06/20 10:14 Absolute Monos (auto) 1.1 10^3/uL (0.1-1.4) 03/06/20 10:14 Absolute Eos (auto) 0.0 10^3/uL (0.0-0.6) 03/06/20 10:14 Absolute Basos (auto) 0.0 10^3/uL (0.0-0.2) 03/06/20 10:14 Seg Neutrophils % 75.7 % (42-78) 03/06/20 10:14 Sodium 134.9 mmol/L (137-145) L 03/06/20 10:14 Potassium 4.3 mmol/L (3.6-5.0) 03/06/20 10:14 Chloride 105 mmol/L (98-107) 03/06/20 10:14 Carbon Dioxide 22 mmol/L (22-30) 03/06/20 10:14 Anion Gap 8 (5-19) 03/06/20 10:14 BUN 9 mg/dL (7-20) 03/06/20 10:14 Creatinine 0.56 mg/dL (0.52-1.25) 03/06/20 10:14 Est GFR ( Amer) > 60 (>60) 03/06/20 10:14 Est GFR (MDRD) Non-Af > 60 (>60) 03/06/20 10:14 Glucose 94 mg/dL (75-110) 03/06/20 10:14 Uric Acid 5.8 mg/dL (2.5-6.2) 03/06/20 10:14 Calcium 9.2 mg/dL (8.4-10.2) 03/06/20 10:14 Total Bilirubin 0.3 mg/dL (0.2-1.3) 03/06/20 10:14 Direct Bilirubin 0.0 mg/dL (0.0-0.4) 03/06/20 10:14 Neonat Total Bilirubin Not Reportable 03/06/20 10:14 Neonat Direct Bilirubin Not Reportable 03/06/20 10:14 Neonat Indirect Bili Not Reportable 03/06/20 10:14 AST 26 U/L (14-36) 03/06/20 10:14 ALT 16 U/L (<35) 03/06/20 10:14 Alkaline Phosphatase 145 U/L (38-126) H 03/06/20 10:14 Lactate Dehydrogenase 168 U/L (120-246) 03/06/20 10:14 Total Protein 6.6 g/dL (6.3-8.2) 03/06/20 10:14 Albumin 3.6 g/dL (3.5-5.0) 03/06/20 10:14 Urine Color YELLOW 03/05/20 18:29 Urine Appearance TURBID 03/05/20 18:29 Urine pH 6.0 (5.0-9.0) 03/05/20 18:29 Ur Specific [place] 1.026 03/05/20 18:29 Urine Protein 30 mg/dL (NEGATIVE) H 03/05/20 18:29 Urine Glucose (UA) NEGATIVE mg/dL (NEGATIVE) 03/05/20 18:29 Urine Ketones NEGATIVE mg/dL (NEGATIVE) 03/05/20 18:29 Urine Blood SMALL (NEGATIVE) H 03/05/20 18:29 Urine Nitrite NEGATIVE (NEGATIVE) 03/05/20 18:29 Urine Bilirubin NEGATIVE (NEGATIVE) 03/05/20 18:29 Urine Urobilinogen 2.0 mg/dL (<2.0) H 03/05/20 18:29 Ur Leukocyte Esterase TRACE (NEGATIVE) H 03/05/20 18:29 Urine WBC (Auto) 1 /HPF 03/05/20 18:29 Urine RBC (Auto) 1 /HPF 03/05/20 18:29 Urine Bacteria (Auto) 1+ /HPF 03/05/20 18:29 Squamous Epi Cells Auto 2 /HPF 03/05/20 18:29 Urine Mucus (Auto) FEW /LPF 03/05/20 18:29 Urine Ascorbic Acid NEGATIVE (NEGATIVE) 03/05/20 18:29 Urine Opiates Screen NEGATIVE 03/05/20 18:29 Urine Methadone Screen NEGATIVE 03/05/20 18:29 Ur Barbiturates Screen NEGATIVE 03/05/20 18:29 Ur Phencyclidine Scrn NEGATIVE 03/05/20 18:29 Ur Amphetamines Screen NEGATIVE 03/05/20 18:29 U Benzodiazepines Scrn NEGATIVE 03/05/20 18:29 Urine Cocaine Screen NEGATIVE 03/05/20 18:29 U Marijuana (THC) Screen NEGATIVE 03/05/20 18:29 RPR NONREACTIVE (NONREACTIVE) 03/05/20 19:57 Blood Type A POSITIVE 03/05/20 19:57 Antibody Screen NEGATIVE 03/05/20 19:57 EKG Comments: Normal sinus rhythm Echo, EF 65% Impressions: Chest X-Ray 03/09/20 00:00 IMPRESSION: No active disease. Plan Plan of Treatment: f/u at [facility] for [facility] in 4 wks Time Spent: Less than 30 Minutes
[2020-03-10 11:47] VITALS: BP 130/84
--- NOTE | 2020-03-10 12:23 | PDOC PROGRESS REPORT ---
Subjective Progress Note for:: 03/10/20 Subjective:: QUINN WEEKS is a 19 year old female without known medical problems and no family history of premature coronary artery disease who is consulted to our service for evaluation of tachycardia. The patient had a prolonged but uneventful vaginal delivery and had been noted to have some episodes of tachycardia as well as lower extremity edema. The patient feels well today and specifically denies chest pain, shortness of breath, HERNANDEZ, PND, palpitations, syncope and presyncope. She denies prior episodes of palpitations/tachycardia however did admit to some episodes of dizziness and lightheadedness with standing up quickly when she was younger. By her report, back in 2018 she was evaluated by a provider for what sounds like atypical chest pain but no di agnosis was given. She is currently resting comfortably in bed. 03/10/20: The patient had an uneventful night and denies cardiac complaints. Her v/s have remained stable and her tachycardia appears to have resolved. She is found in bed resting comfortably and specifically denies CP, SOB, HERNANDEZ, PND, palpitations and racing heart. Physical exam on 03/10/20: GENERAL: Pleasant and conversational. Oriented x3 with normal mood. Not in acute distress. Well groomed and well developed. HEENT: Normocephalic, atraumatic. Pupils equal. Sclerae anicteric. Oropharynx moist. NECK: No JVD. No carotid bruits. LUNGS: Clear to auscultation bilaterally. Normal respiratory effort without the use of accessory muscles or intercostal retractions. CARDIOVASCULAR: Regular rate and rhythm, normal S1 and S2 without murmurs, rubs, or gallops. PMI not displaced. EXTREMITIES: 2+ pitting edema bilaterally, no cyanosis, no clubbing. +2 pulses femoral and pedal pulses bilaterally. SKIN: No lesions or rashes. MUSCULOSKELETAL: No chest tenderness to palpation. NEUROLOGIC: Nonfocal. No gross sensory or motor deficits bilateral upper or lower extremities. Cardiac studies: Echocardiogram on 03/09/2020: -LV is normal in size. -LV systolic function is normal. -EF 60 to 65%. -Trace MR, trace TR. -No prior studies for comparison. Reason For Visit: /INDUCTION Physical Exam Vital Signs: Temp Pulse Resp BP Pulse Ox 97.8 F 79 16 107/66 98 03/10/20 07:34 03/10/20 07:34 03/10/20 07:34 03/10/20 07:34 03/10/20 07:34 Intake & Output 03/09/20 03/10/20 03/11/20 06:59 06:59 06:59 Intake Total 700 840 Balance 700 840 Results Laboratory Results: 03/08/20 06:12 03/06/20 10:14 Impressions: Chest X-Ray 03/09/20 00:00 IMPRESSION: No active disease. 03/08/20 06:12 03/06/20 10:14 MCV 90 fl (80-97) 03/08/20 06:12 MCH 30.9 pg (27.0-33.4) 03/08/20 06:12 MCHC 34.4 g/dL (32.0-36.0) 03/08/20 06:12 RDW 14.5 % (11.5-14.0) H 03/08/20 06:12 Seg Neutrophils % 75.7 % (42-78) 03/06/20 10:14 Chloride 105 mmol/L (98-107) 03/06/20 10:14 Carbon Dioxide 22 mmol/L (22-30) 03/06/20 10:14 Anion Gap 8 (5-19) 03/06/20 10:14 Est GFR ( Amer) > 60 (>60) 03/06/20 10:14 Glucose 94 mg/dL (75-110) 03/06/20 10:14 Uric Acid 5.8 mg/dL (2.5-6.2) 03/06/20 10:14 Calcium 9.2 mg/dL (8.4-10.2) 03/06/20 10:14 Total Bilirubin 0.3 mg/dL (0.2-1.3) 03/06/20 10:14 AST 26 U/L (14-36) 03/06/20 10:14 Alkaline Phosphatase 145 U/L (38-126) H 03/06/20 10:14 Total Protein 6.6 g/dL (6.3-8.2) 03/06/20 10:14 Albumin 3.6 g/dL (3.5-5.0) 03/06/20 10:14 Urine Color YELLOW 03/05/20 18:29 Urine Appearance TURBID 03/05/20 18:29 Urine pH 6.0 (5.0-9.0) 03/05/20 18:29 Ur Specific [place] 1.026 03/05/20 18:29 Urine Protein 30 mg/dL (NEGATIVE) H 03/05/20 18:29 Urine Glucose (UA) NEGATIVE mg/dL (NEGATIVE) 03/05/20 18:29 Urine Ketones NEGATIVE mg/dL (NEGATIVE) 03/05/20 18:29 Urine Blood SMALL (NEGATIVE) H 03/05/20 18:29 Urine Nitrite NEGATIVE (NEGATIVE) 03/05/20 18:29 Ur Leukocyte Esterase TRACE (NEGATIVE) H 03/05/20 18:29 Urine WBC (Auto) 1 /HPF 03/05/20 18:29 Urine RBC (Auto) 1 /HPF 03/05/20 18:29 Blood Type A POSITIVE 03/05/20 19:57 Antibody Screen NEGATIVE 03/05/20 19:57 Current Medication List Generic Name Dose Route Start Last Admin Trade Name Freq PRN Reason Stop Dose Admin Acetaminophen 650 mg 03/07/20 11:32 Tylenol 650 Mg Supp AK 04/06/20 11:31 Q4HP PRN Fever greater than 101 Acetaminophen/Codeine Phosphate 1 each 03/07/20 11:32 Tylenol #3 Tablet PO 03/14/20 11:31 Q4HP PRN FOR PAIN SCALE 1-3 Acetaminophen/Codeine Phosphate 2 each 03/07/20 11:32 Tylenol #3 Tablet PO 03/14/20 11:31 Q4HP PRN FOR PAIN SCALE 4-5 Benzocaine 1 applic 03/07/20 11:32 Dermoplast Aerosol [place] 56 Ml TOP 04/06/20 11:31 PRN PRN FOR EPISIOTOMY PAIN Dibucaine 1 applic 03/07/20 11:32 Nupercainal 1% Oint 28 Gm TP 04/06/20 11:31 PRN PRN FOR HEMORRHOIDS Diphenhydramine HCl 25 mg 03/07/20 11:32 Benadryl 25 Mg Capsule PO 04/06/20 11:31 Q6HP PRN Rash/Itching Diphtheria/Tetanus/Acell Pertussis 0.5 ml 03/07/20 11:32 Boostrix Vaccine 0.5 Ml Syringe IM 04/06/20 11:31 .DISCHARGE PRN IF NOT PREVIOUSLY VACCINATED Docusate Sodium 100 mg 07/18/20 18:00 03/09/20 18:25 Colace 100 Mg Capsule PO 04/06/20 17:59 100 mg BID DON Administration Famotidine 20 mg 03/07/20 22:00 03/09/20 21:33 Pepcid 20 Mg Tablet PO 04/06/20 21:59 20 mg Q12 DON Administration Ferrous Sulfate 325 mg 03/07/20 18:00 03/09/20 18:25 Feosol 325 Mg Tablet PO 04/06/20 17:59 325 mg BID DON Administration Ibuprofen 800 mg 03/07/20 22:00 03/10/20 05:27 Motrin 800 Mg Tablet PO 04/06/20 21:59 800 mg Q8 DON Administration Magnesium Hydroxide 30 ml 03/07/20 11:32 Milk Of Magnesia 30 Ml Udcup PO 04/06/20 11:31 BIDP PRN Constipation Measles/Mumps/Rubella Vaccine Live 0.5 ml 03/07/20 11:32 M-M-R Ii Vaccine Kit 0.5 Ml SUBCUT 04/06/20 11:31 .DISCHARGE PRN IF PATIENT IS NON-IMMUNE Vit/Iron/Folic Acid/DHA 1 cap 03/08/20 10:00 03/09/20 11:16 Multi + Dha Capsule PO 04/07/20 09:59 1 cap DAILY DON Administration Promethazine HCl 25 mg 03/07/20 11:32 Phenergan 25 Mg Tablet PO 04/06/20 11:31 Q4HP PRN Nausea Promethazine HCl 25 mg 03/07/20 11:32 Phenergan 25 Mg Supp.Rect AK 04/06/20 11:31 Q4HP PRN Nausea Promethazine HCl 25 mg 03/07/20 11:32 Phenergan Inj 25 Mg/1 Ml Vial IV 04/06/20 11:31 Q4HP PRN Nausea Pseudoephedrine HCl 60 mg 03/07/20 11:32 Sudafed 30 Mg Tablet PO 04/06/20 11:31 Q6HP PRN Congestion (nasal or Head) Senna/Docusate Sodium 1 each 03/08/20 10:00 03/09/20 11:16 Senna Plus Tablet PO 04/07/20 09:59 1 each DAILY DON Administration Sodium Biphosphate/Sodium Phosphate 133 ml 03/07/20 11:32 Fleet Enema (Adult) 133 Ml AK 04/06/20 11:31 PRN PRN gas [place]/Glycerin 1 each 03/07/20 11:32 Tucks Take-Alongs Wipe TP 04/06/20 11:31 DAILYP PRN ITCHING Zolpidem Tartrate 5 mg 03/07/20 11:32 Ambien 5 Mg Tablet PO 03/14/20 11:31 HSP PRN FOR SLEEP Discontinued Medications Generic Name Dose Route Start Last Admin Trade Name Brent PRN Reason Stop Dose Admin Benzocaine Confirm 03/07/20 13:46 03/07/20 14:41 Dermoplast Aerosol [place] 56 Ml Administered 03/07/20 13:47 Not Given Dose 56 applic .ROUTE .STK-MED ONE Bupivacaine HCl Confirm 03/06/20 11:09 03/07/20 14:27 Sensorcaine-Mpf 0.25% Inj 30 Ml Sdv Administered 03/06/20 11:10 Not Given Dose 30 ml .ROUTE .STK-MED ONE Calcium Carbonate 1,000 mg 03/07/20 05:35 03/07/20 06:09 Tums Chewable 500 Mg Tab.Chew PO 03/07/20 05:36 1,000 mg NOW ONE Administration Dinoprostone 10 mg 03/05/20 19:17 03/05/20 19:47 Cervidil 10 Mg Vaginal Insert PV 03/06/20 19:16 10 mg .AFTER IV STARTED PRN Administration THIS IS NOT A PRN MED Dinoprostone Confirm 03/05/20 19:33 03/07/20 15:50 Cervidil 10 Mg Vaginal Insert Administered 03/05/20 19:34 Not Given Dose 10 mg .ROUTE .STK-MED ONE Diphenhydramine HCl 25 mg 03/07/20 05:07 03/07/20 14:28 Benadryl Inj 50 Mg/1 Ml Vial IV 03/07/20 05:08 Not Given NOW ONE Diphenhydramine HCl Confirm 03/07/20 05:21 03/07/20 05:43 Benadryl Inj 50 Mg/1 Ml Vial Administered 03/07/20 05:22 25 mg Dose Administration 50 mg .ROUTE .STK-MED ONE Ephedrine Sulfate Confirm 03/06/20 11:08 03/07/20 14:40 Ephedrine Sulfate Inj 50 Mg/Ml Ampule Administered 03/06/20 11:09 Not Given Dose 50 mg .ROUTE .STK-MED ONE Furosemide 20 mg 03/08/20 21:00 03/08/20 21:07 Lasix 20 Mg Tablet PO 03/08/20 21:01 20 mg NOW ONE Administration Oxytocin/Sodium Chloride 30 unit in 500 mls @ 0 mls/hr 03/05/20 19:17 03/06/20 13:22 Pitocin Rtu 30 Units-Ns 500 Ml Premix Bag IV 04/04/20 19:16 2 mls/hr CONTINUOUS PRN Administration THIS MED IS NOT "PRN" Protocol As Directed Lactated Ringer's 300 mls @ 0 mls/hr 03/05/20 19:19 03/07/20 15:50 Lactated Ringers 1000 Ml Iv Soln IV 03/05/20 19:20 Not Given BOLUS ONE Wide Open Lactated Ringer's 1,000 mls @ 125 mls/hr 03/05/20 19:19 03/05/20 19:47 Lactated Ringers 1000 Ml Iv Soln IV 04/04/20 19:18 125 mls/hr CONTINUOUS PRN Administration THIS MED IS NOT "PRN" Oxytocin/Sodium Chloride Confirm 03/06/20 08:45 03/07/20 14:40 Pitocin Rtu 30 Units-Ns 500 Ml Premix Bag Administered 03/06/20 08:46 Not Given Dose 30 unit in 500 mls @ ud .ROUTE .STK-MED ONE Fentanyl/Bupivacaine/Sodium Chlor Confirm 03/06/20 11:09 03/07/20 14:40 Fentanyl 300mcg/150 Ml Bupiv 0.125% Epidural Administered 03/06/20 11:10 Not Given Dose 300 mcg in 150 mls @ ud EPI .STK-MED ONE Fentanyl/Bupivacaine/Sodium Chlor Confirm 03/07/20 01:16 03/07/20 14:40 Fentanyl 300mcg/150 Ml Bupiv 0.125% Epidural Administered 03/07/20 01:17 Not Given Dose 300 mcg in 150 mls @ ud EPI .STK-MED ONE Oxytocin/Sodium Chloride 30 unit in 500 mls @ 0 mls/hr 03/07/20 11:32 Pitocin Rtu 30 Units-Ns 500 Ml Premix Bag IV 03/07/20 11:32 .POSTPARTUMRECOVERY PRN THIS MED IS NOT "PRN" Wide Open Ibuprofen Confirm 03/07/20 11:36 03/07/20 11:39 Motrin 800 Mg Tablet Administered 03/07/20 11:37 800 mg Dose Administration 800 mg .ROUTE .STK-MED ONE Lidocaine HCl Confirm 03/06/20 08:45 03/07/20 14:40 Xylocaine 1% Inj-Pf (10 Mg/Ml) 30 Ml Sdv Administered 03/06/20 08:46 Not Given Dose 30 ml .ROUTE .STK-MED ONE Lidocaine HCl Confirm 03/06/20 19:37 03/07/20 14:28 Xylocaine 2% Inj-Pf (20 Mg/Ml) 10 Ml Ampul Administered 03/06/20 19:38 Not Given Dose 10 ml .ROUTE .STK-MED ONE Misoprostol Confirm 03/06/20 08:45 03/07/20 14:40 Cytotec 0.2 Mg Tablet Administered 03/06/20 08:46 Not Given Dose 0.2 mg .ROUTE .STK-MED ONE Nalbuphine HCl Confirm 03/06/20 09:12 03/06/20 09:15 Nubain Inj 10 Mg/1 Ml Ampule Administered 03/06/20 09:13 10 mg Dose Administration 10 mg .ROUTE .STK-MED ONE Nalbuphine HCl 10 mg 03/06/20 09:20 03/07/20 14:27 Nubain Inj 10 Mg/1 Ml Ampule INJ 03/06/20 09:21 Not Given NOW ONE Ondansetron HCl Confirm 03/06/20 10:12 03/06/20 10:16 Zofran Inj/Pf 4 Mg/2 Ml Sdv Administered 03/06/20 10:13 4 mg Dose Administration 4 mg .ROUTE .STK-MED ONE Oxytocin Confirm 03/06/20 08:45 03/07/20 14:40 Pitocin Inj 10 Units/1 Ml Vial Administered 03/06/20 08:46 Not Given Dose 10 unit .ROUTE .STK-MED ONE Ropivacaine Confirm 03/07/20 09:21 03/07/20 14:40 Naropin Inj/Pf 0.2% (2 Mg/Ml) 20 Ml Sdv Administered 03/07/20 09:22 Not Given Dose 20 ml .ROUTE .STK-MED ONE Assessment & Plan - Diagnosis (1) Edema Plan: The patient does have 2+ pitting edema in the lower extremities bilaterally which is likely secondary to her recent . She has no evidence of heart failure on exam, remains asymptomatic from the cardiovascular standpoint with a normal echocardiogram for her age. Recommendations: -Continue with clinical observation. -F/U with Dr. Franco in one week. (2) Tachycardia Plan: The patient was not tachycardic during my evaluation and she remained asymptomatic. Her echocardiogram was normal for her age and state. Recommendations: -No further cardiac work-up indicated at this point. -F/U with Dr. Franco, [facility].
== END 2020-03-10 12:45 | disposition home or self-care (01) | DRG 768 ==
LOC: LR 18:17 → 2S 03-07 14:05
PROVIDERS: ADMIT Obstetrics & Gynecology Gynecology; ATTEND Obstetrics & Gynecology
PROC: 10E0XZZ Delivery of Products of Conception, External Approach (ICD-10-PCS; principal; 2020-03-07)
PROC: 0DQR0ZZ Repair Anal Sphincter, Open Approach (ICD-10-PCS; 2020-03-07)
DX: O13.4 Gestational [pregnancy-induced] hypertension without significant proteinuria, complicating childbirth (principal); Z37.0 Single live birth; O48.0 Post-term pregnancy; O99.42 Diseases of the circulatory system complicating childbirth; O70.21 Third degree perineal laceration during delivery, IIIa; O69.81X0 Labor and delivery complicated by cord around neck, without compression, not applicable or unspecified; R00.0 Tachycardia, unspecified; Z3A.40 40 weeks gestation of pregnancy
CPT/HCPCS: 1967; 36415; 71045; 80053; 80307; 81001; 83615; 84550; 85025; 85027; 86592; 86850; 86900; 86901; 93005; 93010; 93306; 94760; C1758; J1200; J2300; J2405; J2590; J2795; J3010; J3490